=== PATIENT | male | born 1965 | race Caucasian/White ===

== ENCOUNTER 2021-03-30 19:34 | Emergency (ER) | payer BC ==
[2021-03-30 19:59] LABS: HEMOGLOBIN 17.5 gm/dl (14.0-17.5); RED BLOOD COUNT 5.81 M/UL (4.20-5.50); WHITE BLOOD COUNT 9.9 K/UL (4.5-11.0)
[2021-03-30 20:24] LABS: BUN/CREATININE RATIO 12 (0-10)
[2021-03-30] MEDS ORDERED: MEDROL DOSEPAK 24 MG PO (21:21)
== END 2021-03-30 21:41 | disposition home or self-care (01) ==
LOC: ER1 19:34
PROVIDERS: Emergency Medicine
DX: G51.0 Bell's palsy (principal); Z88.0 Allergy status to penicillin; K21.9 Gastro-esophageal reflux disease without esophagitis
CPT/HCPCS: 70450; 71045; 80053; 82550; 82553; 83874; 84484; 85025; 93005; 99284